=== PATIENT | female | born 1960 | race Caucasian/White ===

== ENCOUNTER 2018-10-26 22:31 | Emergency (ER) | payer OTHER ==
[~2018-10-26] VITALS: Ht 160 cm; Wt 77.1 kg
[2018-10-27 00:16] LABS: HEMOGLOBIN 14.3 gm/dL (12.0-15.0); MCH 27.3 pg (26.0-34.0); MCHC 33.2 g/dL (28.0-37.0); MCV 82.3 fL (80.0-100.0); RBC 5.23 mil/uL (4.20-5.00); RDW 15.6 % (10.5-14.5); WBC 11.3 thou/uL (4.0-11.0)
[2018-10-27 00:24] LABS: CALCIUM 9.3 mg/dL (8.5-10.1); CREATININE 0.8 mg/dL (0.6-1.0); POTASSIUM 4.4 mmol/L (3.5-5.1)
[2018-10-27] MEDS ORDERED: OXYCODONE HCL 55 MG PO (01:59)
[2018-10-27 03:07] VITALS: BP 140/77
== END 2018-10-27 03:09 | disposition home or self-care (01) ==
LOC: ER 22:31
PROVIDERS: Emergency Medicine
DX: S82.142A Displaced bicondylar fracture of left tibia, initial encounter for closed fracture (principal); W01.0XXA Fall on same level from slipping, tripping and stumbling without subsequent striking against object, initial encounter; Y93.89 Activity, other specified; Y92.89 Other specified places as the place of occurrence of the external cause; Y99.8 Other external cause status